=== PATIENT | female | born 1970 | race Hispanic/Latino ===

== ENCOUNTER 2019-12-15 14:59 | Emergency (ER) | payer OTHER ==
--- NOTE | 2019-12-15 15:37 | Emergency Department Report ---
History of Present Illness - General Chief Complaint: Overdose Stated Complaint: OVERDOSE Time Seen by Provider: 12/15/19 15:36 Source: patient Mode of arrival: Ambulatory Limitations: No Limitations - History of Present Illness Initial Comments: 49-year-old female with past medical history of chronic musculoskeletal pain and migraine presents to the hospital complaining of unintentional overdose. Patient bought a medication off the street which she thought was Tylenol 3. It appears that medication might have been Lortab 10/325. Shortly after taking the medication she became drowsy and fell to the ground. Son called EMS. Patient received Narcan prior to arrival with improvement in mental status. She presents alert and oriented and denies any new complaints. Patient does not complain of any scalp pain, neck pain, or new musculoskeletal pain as result of injury. She is also took Topamax today and vomited shortly after taking the medication. Patient states she typically purchases pain medications off the street. She denies suicidal ideation or attempt - Related Data Allergies Allergy/AdvReac Type Severity Reaction Status Date / Time No Known Allergies Allergy Verified 12/15/19 15:03 ED Review of Systems ROS: Stated complaint: OVERDOSE Other details as noted in HPI Comment: All other systems reviewed and negative ED Past Medical Hx - Past Medical History Previous Medical History?: No - Surgical History Past Surgical History?: No - Social History Smoking Status: Never Smoker Substance Use Type: None ED Physical Exam - General Limitations: No Limitations - Other Other exam information: General: No acute distress Head: Atraumatic, no hematoma or scalp tenderness Eyes: normal appearance ENT: Moist mucous membranes Neck: Normal appearance, no midline tenderness Chest: Clear to auscultation bilaterally CV: Regular rate and rhythm Abdomen: Soft, normal bowel sounds, nontender, nondistended, no rebound or guarding Back: Normal inspection Extremity: Normal inspection, full range of motion Neuro: Alert O x 3, no facial asymmetry, speech clear, no gross motor sensory deficit Psych: Appropriate behavior Skin: No rash ED Course Vital Signs 12/15/19 15:41 Temperature 98 F Pulse Rate 85 Respiratory 16 Rate Blood Pressure 106/70 [Left] O2 Sat by Pulse 98 Oximetry ED Medical Decision Making - Lab Data Result diagrams: 12/15/19 15:48 12/15/19 15:48 - EKG Data -: EKG Interpreted by Me EKG shows normal: sinus rhythm, intervals (qtc 391), ST-T waves (no stemi) Rate: normal (78) - Medical Decision Making Patient fell asleep and became unresponsive after taking Lortab 10/. She did fall down to the ground but denies any new muscle skeletal injury or worsening and chronic underlying headache. Declined patient declined CT head since she feels like pain is chronic. patient feels back to normal in her baseline during 2-1/2-hour ED stay. UDS positive for benzos. p.o. potassium given mild hypokalemia. Patient has mild leukocytosis but does not endorse symptoms of infection. She will be discharged home she also denies known benzo use she states she takes lortab about once a day i am unsure if she took a benzo + or - a opiate and that caused her drowiness. Critical Care Time: No Critical care attestation.: If time is entered above; I have spent that time in minutes in the direct care of this critically ill patient, excluding procedure time. ED Disposition Clinical Impression: Narcotic overdose, Accidental overdose, Chronic pain Disposition: DC- TO HOME OR SELFCARE Is pt being admited?: No Does the pt Need Aspirin: No Condition: Stable Instructions: Narcotic Abuse (ED) Additional Instructions: Follow-up with your doctor or doctor/clinic provided. Return if symptoms worsen as indicated by your discharge instructions. Referrals: PRIMARY CARE [Primary Care Provider] - 3-5 Days [facility] [Provider Group] - 3-5 Days Time of Disposition: 17:36
[2019-12-15 15:44] VITALS: BP 106/70
[2019-12-15 16:22] LABS: Bacteria,Urine 1+ /HPF (Negative); Bilirubin,Urine NEG (Negative); Blood,Urine SM (Negative); Color,Urine Yellow (Yellow); Hyaline Casts,Urine 7 /LPF; Mucus,Urine 2+ /HPF; Urobilinogen,Urine < 2.0 mg/dL (<2.0)
[2019-12-15 16:51] LABS: Basophils % (Auto) 0.1 % (0.0-1.8); Eosinophils # (Auto) 0.1 K/mm3 (0.0-0.4); Eosinophils % (Auto) 0.9 % (0.0-4.3); Hemoglobin 13.2 gm/dl (10.1-14.3); Lymphocytes # (Auto) 1.3 K/mm3 (1.2-5.4); Lymphocytes % (Auto) 8.3 % (13.4-35.0); Mean Corpuscular HGB Conc 34 % (30-34); Mean Corpuscular Volume 97 fl (79-97); Monocytes # (Auto) 0.9 K/mm3 (0.0-0.8); Monocytes % (Auto) 5.9 % (0.0-7.3); Platelet Count 241 K/mm3 (140-440); Red Blood Count 4.03 M/mm3 (3.65-5.03); Red Cell Distribution Width 13.2 % (13.2-15.2)
[2019-12-15 16:53] LABS: Alanine Aminotransferase 9 units/L (7-56); Albumin 3.6 g/dL (3.9-5); BUN/Creatinine Ratio 18; Blood Urea Nitrogen 14 mg/dL (7-17); Calcium 8.7 mg/dL (8.4-10.2); Hemolysis Index 4
[2019-12-15 17:14] LABS: Amphetamine Screen,Urine Negative; Cannabinoid Screen,Urine Negative; Cocaine Screen,Urine Negative; Methadone Screen,Urine Negative; Opiate Screen,Urine Negative
[2019-12-15] MEDS ORDERED: POTASSIUM CHLORIDE ER 20 MEQ TAB PO ONE (17:20)
[2019-12-15 17:44] LABS: Benzodiazepines Screen,Urine Positive
== END 2019-12-15 18:04 | disposition home or self-care (01) ==
LOC: ED 14:59
DX: T40.601A Poisoning by unspecified narcotics, accidental (unintentional), initial encounter (principal); T39.1X1A Poisoning by 4-Aminophenol derivatives, accidental (unintentional), initial encounter; G89.29 Other chronic pain; Y92.89 Other specified places as the place of occurrence of the external cause
CPT/HCPCS: 36415; 80053; 80307; 80320; 81001; 84703; 85025; 93005; G0480